=== PATIENT | male | born 1970 | race Caucasian/White ===

== ENCOUNTER 2021-09-17 12:03 | Observation (INO) ==
[2021-09-17] MEDS ORDERED: fentaNYL citrate 100 MCG/2 ML VIAL ONE ×3 (13:42→15:55)
[2021-09-17] MEDS ORDERED: MIDAZOLAM HCL 5 MG/ML 1 ML VIAL ONE ×2 (13:42→15:31)
--- NOTE | 2021-09-17 13:55 | History & Physical Report ---
Date of Service September 17, 2021 Assessment & Plan (1) Nonischemic cardiomyopathy: (2) AVB (atrioventricular block): (3) Pacemaker: (4) HERNANDEZ (dyspnea on exertion): Plan: 1. Nonischemic cardiomyopathy: He has developed a nonischemic cardiomyopathy which may be related to ventricular pacing as well as identification of sarcoid. Since he is pacing all of the time with a wide-complex a biventricular pacemaker is indicated, with his left ventricular dysfunction and cardiac sarcoid he should have an ICD in place. 2. AV block: He initially presented with exercise-induced second-degree AV block, however now even at rest he is pacing all of the time. With inhibition of his pacemaker today he is pacemaker dependent with complete heart block, evidently having significant progression since device implantation. 3. Pacemaker: He has a dual-chamber pacemaker in place, this is functioning well and was implanted about 4 months ago. It is likely that we can remove the ventricular lead which will be important to maintain MRI compatibility for the future. The atrial lead has good characteristics. 4. Dyspnea on exertion: His dyspnea on exertion improved substantially with pacemaker implantation, therefore his main symptoms resolved with allowing an elevated heart rate with activity. He does not seem to have much in the way of symptoms from his sarcoid. I discussed upgrading his device from a pacemaker to a biventricular ICD. I discussed the indications, procedure, risks and alternatives and he understands and agrees to proceed. Consent obtained. I also discussed sedation with him and he is agreeable. Consent obtained. History of Present Illness Chief Complaint: Nonischemic cardiomyopathy Primary Care Provider: Fili Mir This is a 51-year-old male who developed dyspnea on exertion in the summer 2020, prior to that he worked out regularly in the gym and had no difficulty with that . He began to be quite short of breath with exertion without associated chest discomfort, orthopnea or peripheral edema. In retrospect he did monitor his heart rate during exercise with a heart rate monitor and starting around March 08, 2021 he noticed that his heart rate monitor produced erratic readings, he thought it wasn't working and replaced it with a different one which gave him the same result therefore he quit wearing it. The monitor showed that his heart rate would greens picker normally sometimes and then would drop down with exercise and probably identified the onset of his heart block. Those symptoms have probably progressed over that time. At rest he has no complaints, he has not had lightheadedness, presyncope or syncope. To evaluate his shortness of breath a stress test was scheduled and was performed May 14, 2021. His baseline electrocardiogram showed sinus rhythm with marked first-degree AV block but with a normal conducted electrical complexes. With exercise he d eveloped second-degree and then 2-1 AV block, at peak exercise his heart rate was 61 bpm (2-1 AV block). His maximum heart rate actually occurred during recovery when he regained one-to-one conduction which occurred several minutes into recovery and his heart rate was 120 bpm. This did reproduce his clinical symptoms. An echocardiogram was normal at baseline and he had no ischemia with exercise, but at a very submaximal heart rate. A Lyme screen was sent and was negative both for IgG and IgM. With no reversible cause for his AV block a pacemaker was implanted on May 17, 2021. He immediately felt very well having no difficulty with exertion once again. An echocardiogram done May 14, 2021 had showed normal left ventricular systolic function with normal left ventricular wall thickness. His ejection fraction was calculated 55 to 60%. He had a CT scanning of the abdomen and pelvis on March 21, 2021 for hematuria and on that an incidental finding was small nodules in the lower lungs felt to be benign and tiny knowledge with some opacity in the right middle lobe concerning for inflammatory process and the recommendation was for CT scan in [address] scan was done June 20, 2021 and there may have been progression, this was felt to be concerning for sarcoidosis so a referral was made for evaluation of that. Evaluation there disclosed that he did indeed have sarcoid and that is being evaluated for treatment at this time. As part of that evaluation however (which was done at [facility]) he did have a cardiac MRI where his ejection fraction was noted to be in the 30s. Although this may in part be pacemaker induced it was concerning with the diagnosis of sarcoid and a recommendation was made to upgrade his device to an ICD, since he was pacing all the time at this juncture this was felt to indicate a biventricular ICD. He has continued to feel well with exertion, he has not had heart failure symptoms and reports no lightheadedness, dizziness, palpitations, presyncope or syncope. Allergies Allergy/AdvReac Type Severity Reaction Status Date / Time No Known Allergies Allergy Verified 06/19/21 14:36 Home Medications Medication Instructions Recorded Confirmed Type atorvastatin 20 mg tablet 20 mg PO QPM 05/15/21 09/17/21 History folic acid 1 mg tablet 1 mg PO DAILY 09/17/21 09/17/21 History methotrexate sodium 2.5 mg tablet 12.5 mg PO WK 09/17/21 09/17/21 History metoprolol succinate 25 mg PO DAILY 09/17/21 09/17/21 History sacubitril 24 mg-valsartan 26 mg 1 tab PO BID 09/17/21 09/17/21 History tablet (Entresto) Past Med/Surg History Social History Smoking Status: Never smoker Hx Alcohol Use: Yes Alcohol type: beer and hard liquor Hx Substance Use: No Preferred Language: Scottish Communication Ability: Effective Coupon Collection Clerk Required: No Beliefs That Will Affect Care: None Current Living Situation: Spouse Feels Safe at Home: Yes Safety Concerns: Feels Safe At This Time Assistive Devices: None Physical Exam Physical Exam: Constitutional: Alert, cooperative and in no distress. HEENT: Unremarkable Neck: No jugular venous distention, carotid pulses are normal and equal bilaterally without bruits. Pulmonary: Clear to auscultation bilaterally. Cardiac: Regular rhythm with no murmur, gallop or rub. Abdomen: Soft, nontender with normal bowel sounds. Extremities: No edema. Distal pulses intact. Neurologic: No focal findings. Gait is steady. Skin: The device site is well-healed without erythema, swelling or tenderness. No rash, ecchymoses or petechiae. Results & Data Results & Data ([facility]) Vital Signs (Past 12 Hours) Vital Signs Temp Pulse Resp BP Pulse Ox 09/17/21 12:14 36.8 C 82 16 115/97 97 Laboratory Results Intake and Output 09/16/21 09/17/21 09/17/21 22:59 06:59 14:59 Other: Weight 139.4 kg Weight Measurement Method Standing Scale Patient Weight 09/18/21 06:59 Weight 139.4 kg PG Care Time/CCT Total # of Minutes Spent Total Time Spent with Patient: Total time spent is greater than 50% in coordination of care (as documented) at patient's floor/unit and/or counseling patient: Coding Level of Care Code None Diagnoses Nonischemic cardiomyopathy I42.8 AVB (atrioventricular block) I44.30 Pacemaker Z95.0 HERNANDEZ (dyspnea on exertion) R06.00
[2021-09-17] MEDS ORDERED: LIDOCAINE 1% LOCAL 20 ML VIAL ONE ×2 (13:57→15:54)
[2021-09-17] MEDS ORDERED: WATER, STERILE FOR INJ 10 ML VIAL ONE (13:57)
[2021-09-17] MEDS ORDERED: VANCOMYCIN HCL 1000MG/20ML VIAL ONE (13:57)
[2021-09-17] MEDS ORDERED: ceFAZolin 330 MG/ML 1 GM VIAL ONE (14:06)
--- NOTE | 2021-09-17 14:08 | Pre Anesthesia Assessment ---
Date of Service September 17, 2021 Pre Sedation Assessment Vital Signs Temp Pulse Resp BP Pulse Ox 09/17/21 12:14 36.8 C 82 16 115/97 97 Cardiovascular RRR, no murmur, no edema Respiratory normal respiratory effort, lungs clear to auscultation Pre-Sedation Airway Assessment Smoking Status: Never smoker Hx Sleep Apnea: No Short, Thick Neck: No Thyromental Distance: > or= 3.5 Finger Breadths Oral Cavity: + WNL Mallampati Class: II ASA: ASA3 NPO Status Date of Last Intake of Fluids: 09/16/21 Time of Last Intake of Fluids: 21:00 Date of Last Intake of Solid Food: 09/16/21 Time of Last Intake of Solid Foods: 21:00 Procedure Planning Contraindications for Sedation: none Current Medications Reviewed: Yes Notes The planned sedation has been discussed with the patient. Informed Consent was obtained. I have identified the patient, determined the appropriateness of sedation and have assessed the patient immediately prior to the procedure. All medicine(s) and interventions are by my order.
[2021-09-17] MEDS ORDERED: BACITRACIN OINT 0.9 GM PKT ONE (16:37)
[2021-09-17] MEDS ORDERED: KETOROLAC TROMETHAMINE 10 MG TABLET PO PRN (16:45)
--- NOTE | 2021-09-17 16:54 | Electrophysiology Report ---
Date of Service September 17, 2021 Electrophysiology Procedure Electrophysiology Procedure Report Preoperative diagnosis: Cardiomyopathy Dual-chamber Pacemaker Postoperative diagnosis: Same Procedure: Left subclavian venogram ICD lead implantation Coronary sinus angiogram Left ventricular lead implantation Dual-chamber pacemaker explantation Biventricular ICD implantation Right ventricular pacing lead extraction Surgeon: Kenneth Acuna MD Estimated blood loss: 30 cc Complications: None Disposition: Engine Monitor recovery Procedure details: Dye was injected via the left arm IV site to opacify the left subclavian vein. The subclavian vein was identified and found to be free of obstruction. Left axillary venipuncture was performed and a guidewire placed through left subclavian vein into the right atrium. A 3 cm incision was made through the old implant scar and carried down to the pectoralis fascia. A 10- 1/2 [place] Medtronic lead introducer was placed over the guidewire into the left subclavian vein. A bipolar dual coil defibrillator lead was advanced through the introducer into the superior vena cava. A guidewire was placed back through the introducer and the introducer stripped away from the lead and guidewire. Using a curved stylette the lead was advanced through the right ventricular outflow tract and then using a straight stylette was positioned in the right ventricular apex. Once in position the ventricular pacing threshold was evaluated in bipolar configuration at a pulse width of 0.5 ms. Sensing and pacing thresholds are recorded on the data sheet. Diaphragmatic pacing was evaluated full output and is recorded on the data sheet. A Dyan coronary sinus sheath was advanced to position in the right atrium. It was positioned near the coronary sinus, dye was injected to opacify the os of the coronary sinus and a guidewire was advanced into the coronary sinus. The sheath system was advanced into the coronary sinus. Dye was injected in the coronary sinus in various projections to identify the venous branches. A good branch was identified and a 0.014 inch guidewire was advanced into the branch. A left ventricular lead was advanced over the guidewire into good position. The pacing threshold was evaluated in this position as noted on the implant data sheet. Diaphragmatic pacing was evaluated full output and is noted on the data sheet. The sheath system was then removed from the lead and the ICD lead and the LV lead were attached to the anterior pectoral fascia using 2 sutures of 2-0 silk around each lead collar. The pacemaker pocket was opened by further anesthetizing along the original implant site and incision was made through the scar and carried down to the pacemaker generator. The generator was dissected free of tissue and explanted. The leads were disconnected from the generator and a new biventricular ICD was attached to the chronic atrial lead as well as the new ICD lead and the new coronary sinus lead. The chronic ventricular lead was dissected free of tissue, the sutures holding the lead to the pectoralis fascia were removed and the lead was stiffened with a stylette. The screw was retracted and the lead was removed with gentle tract ion. The ICD was placed in the pocket with the leads coiled beneath it and the incision was closed with a running double subcutaneous closure of 3-0 Vicryl followed by running subcuticular skin closure of 4-0 Vicryl. Bacitracin ointment was placed on incision and a dressing applied. [facility] [place] Electrophysiology codes Indication for Procedure (1) Nonischemic cardiomyopathy: (2) AVB (atrioventricular block): (3) Sarcoid myopathy: Pacing Procedure 1: Pacin BiV electrode w/Pacer / ICD implant, add on code Procedure 2: Pacin Removal perm single lead Procedure 3: Pacin Removal Pacer genererator ICD Procedure 1: ICD: 12146 Insert single or dual ICD system Miscellaneous Procedures Procedure 1: EP Miscellaneous: 70494-87 Vengraphy, extremity Procedure 2: EP Miscellaneous: 54472 Contrast injection for venography Procedure 3: EP Miscellaneous: 45157-28 Venography, CS supevsion/interp PG Moderate Sedation Codes Moderate Sedation Codes Procedure 1: Sedation/Anesthesia: 53739 Mod Sedation by the same physician;Init15 Min Child Age 5 & Up Procedure 2: Sedation/Anesthesia: 07745 Mod Sedation by the same physician; Ea [id number] Minutes
--- NOTE | 2021-09-17 17:27 | Post Anesthesia Assessment ---
Date of Service September 17, 2021 Post Sedation Assessment Vital Signs Temp Pulse Resp BP Pulse Ox 09/17/21 17:15 99 H 18 115/82 96 09/17/21 17:00 36.6 C 99 H 16 117/84 95 09/17/21 12:14 36.8 C 82 16 115/97 97 Discharge Sedation Level of Care: Fast Track Phase II Post Sedation Plan On clinical assessment, the patient appears to have tolerated the sedation without complications. Patient is recovering as anticipated. Patient will continue to be monitored by nursing and may be discharged when sedation discharge criteria are met per below protocol. Upon Completions of procedure up to 15 minutes continue every 5 minute vital signs and the P.A.R. score; then discharge to a Phase I or Fast Track to Phase II per the following guidelines: * Discharge Patient to appropriate Phase II area if PAR is 8 or greater or return to pre- procedure baseline. The post - procedure orders will be as directed. * If PAR score is less than 8 or not return to pre-procedure baseline then patient will follow Phase I monitoring till PAR is reached for Phase II. The Phase I may be done in procedure room or may call to secure a Phase I area. * If naloxone or flumazenil are used for reversal, hold in Phase I for continued monitoring from when last reversal dose was given for a minimum of 60 minutes or longer pending the nurse and/or physician discretion of patient condition before discharge to Phase II. Please call the Sedation Physician to re-evaluate and complete post-note for discharge to Phase II area. Do NOT discharge from procedure sedation or Phase 1 until post- sedation evaluation note is complete by procedure /sedation MD Sedation Discharge Instructions to be given to the patient at discharge to home.
[2021-09-17] MEDS: ACETAMINOPHEN 325 MG TAB PO PRN (20:41)
[2021-09-17] MEDS ORDERED: ATORVASTATIN 20 MG TAB PO SCH (21:00)
[2021-09-17] MEDS: VALSARTAN/SACUBITRIL 26/24MG TAB PO SCH (21:08)
[2021-09-18] MEDS: VALSARTAN/SACUBITRIL 26/24MG TAB PO SCH (08:28)
[2021-09-18] MEDS: ACETAMINOPHEN 325 MG TAB PO PRN (08:47)
[2021-09-18] MEDS ORDERED: METOPROLOL SUCC 25MG EXT REL TAB PO SCH (09:00)
[2021-09-18] MEDS ORDERED: FOLIC ACID 1 MG TAB PO SCH (09:00)
--- NOTE | 2021-09-18 09:02 | XRay Report ---
TWO VIEW CHEST CLINICAL HISTORY: Pacemaker implantation. FINDINGS: PA and lateral chest radiographs are compared to study dated 05/17/2021 and correlated with chest CT dated 06/20/2021. A 3-lead cardiac AICD has been placed. This partially obscures left lung ba se. Leads project over the right atrial appendage, the right ventricle, and the coronary sinus. The h eart is top normal for projection. The pulmonary vasculature is noncongested. There are low lung volu mes with bibasilar atelectasis. No airspace consolidation or pleural effusion is identified. There is no pneumothorax. The bony thorax appears intact. IMPRESSION: 1. A 3-lead cardiac AICD has been implanted as above. No pneumothorax is seen post procedure. 2. There is no radiographic evidence of congestive failure. 3. No airspace consolidation or pleural effusion is identified. ACT 112: Negative or not required by law. Electronically signed by: Enio Cruz M.D. 09/18/2021 9:01 AM
--- NOTE | 2021-09-18 09:37 | Cardiology Progress Note ---
Date of Service September 18, 2021 Assessment & Plan (1) Status post implantation of automatic cardioverter/defibrillator (AICD): Plan: 1. Postop day #1: He is doing very well postop, the site looks good, leads are in good position and the device is working well. He is stable for discharge today. Admission and Anticipated Discharge Date Admission Date: September 17, 2021 Subjective He is feeling quite well this morning. He had something he thought was a muscle spasm during the night, but nothing more than that and he has minimal incisional discomfort. No chest discomfort or shortness of breath. Physical Exam Physical Exam: The incision is clean and dry, no erythema, minimal tenderness. No swelling or drainage. Cardiac rhythm is regular with no rub Lungs are clear Results & Data ([facility]) Vital Signs (Past 12 Hours) Vital Signs Temp Pulse Pulse Resp BP Pulse Ox 09/18/21 07:07 36.8 C 89 18 121/84 97 09/18/21 03:00 36.6 C 87 20 115/86 96 09/18/21 00:16 88 09/17/21 22:54 36.7 C 86 16 100/69 95 Diagnostic Findings 1. Postop ECG: Sinus rhythm with biventricular pacing, significant right bundle branch block pattern suggesting early left ventricular activation, I will adjust VV timing today. 2. Telemetry: Ventricular pacing throughout appropriately 3. Chest x-ray: Good lead position, no pneumothorax. 4. ICD evaluation: Excellent pacing and sensing characteristics in both ventricular leads. PG Care Time/CCT Total # of Minutes Spent Total Time Spent with Patient: Total time spent is greater than 50% in coordination of care (as documented) at patient's floor/unit and/or counseling patient: Coding Level of Care Code 82271 Post Operative Follow-Up Diagnoses Status post implantation of automatic cardioverter/defibrillator (AICD) Z95.810 CPT Codes Implantable Defib Multi lead programming - 71558 ([id number])
--- NOTE | 2021-09-18 11:15 | Electrocardiogram Report ---
Test Reason : Blood Pressure : / mmHG Vent. Rate : 086 BPM Atrial Rate : 086 BPM P-R Int : 136 ms QRS Dur : 168 ms QT Int : 424 ms P-R-T Axes : 021 250 005 degrees QTc Int : 507 ms Atrial-sensed ventricular-paced rhythm Biventricular pacemaker detected Abnormal ECG When compared with ECG of 17-MAY-2021 13:11, Vent. rate has increased BY 4 BPM Confirmed by Grover Pascal ([id number]) on 09/18/2021 11:14:30 AM Referred By: Kenneth Acuna Confirmed By:Oskar Pascal
--- NOTE | 2021-09-30 09:32 | Discharge Summary ---
Date of Service September 30, 2021 Admission HPI Per Admitting Provider This is a 51-year-old male who developed dyspnea on exertion in the summer 2020, prior to that he worked out regularly in the gym and had no difficulty with that. He began to be quite short of breath with exertion without associated chest discomfort, orthopnea or peripheral edema. In retrospect he did monitor his heart rate during exercise with a heart rate monitor and starting around March 08, 2021 he noticed that his heart rate monitor produced erratic readings, he thought it wasn't working and replaced it with a different one which gave him the same result therefore he quit wearing it. The monitor showed that his heart rate would chicken picker normally sometimes and then would drop down with exercise and probably identified the onset of his heart block. Those symptoms have probably progressed over that time. At rest he has no complaints, he has not had lightheadedness, presyncope or syncope. To evaluate his shortness of breath a stress test was scheduled and was performed May 14, 2021. His baseline electrocardiogram showed sinus rhythm with marked first-degree AV block but with a normal conducted electrical complexes. With exercise he developed second-degree and then 2-1 AV block, at peak exercise his heart rate was 61 bpm (2-1 AV block). His maximum heart rate actually occurred during recovery when he regained one-to-one conduction which occurred several minutes into recovery and his heart rate was 120 bpm. This did reproduce his clinical symptoms. An echocardiogram was normal at baseline and he had no ischemia with exercise, but at a very submaximal heart rate. A Lyme screen was sent and was negative both for IgG and IgM. With no reversible cause for his AV block a pacemaker was implanted on May 17, 2021. He immediately felt very well having no difficulty with exertion once again. An echocardiogram done May 14, 2021 had showed normal left ventricular systolic function with normal left ventricular wall thickness. His ejection fraction was calculated 55 to 60%. He had a CT scanning of the abdomen and pelvis on March 21, 2021 for hematuria and on that an incidental finding was small nodules in the lower lungs felt to be benign and tiny knowledge with some opacity in the right middle lobe concerning for inflammatory process and the recommendation was for CT scan in [address] scan was done June 20, 2021 and there may have been progression, th is was felt to be concerning for sarcoidosis so a referral was made for evaluation of that. Evaluation there disclosed that he did indeed have sarcoid and that is being evaluated for treatment at this time. As part [facility] that evaluation however [facility] he did have a cardiac MRI where his ejection fraction was noted to be in the 30s. Although this may in part be pacemaker induced it was concerning with the diagnosis of sarcoid and a recommendation was made to upgrade his device to an ICD, since he was pacing all the time at this juncture this was felt to indicate a biventricular ICD. He has continued to feel well with exertion, he has not had heart failure symptoms and reports no lightheadedness, dizziness, palpitations, presyncope or syncope. Admission Exam Per Admitting Provider Constitutional: Alert, cooperative and in no distress. HEENT: Unremarkable Neck: No jugular venous distention, carotid pulses are normal and equal bilaterally without bruits. Pulmonary: Clear to auscultation bilaterally. Cardiac: Regular rhythm with no murmur, gallop or rub. Abdomen: Soft, nontender with normal bowel sounds. Extremities: No edema. Distal pulses intact. Neurologic: No focal findings. Gait is steady. Skin: The device site is well-healed without erythema, swelling or tenderness. No rash, ecchymoses or petechiae. Principal Diagnosis Sarcoid cardiomyopathy Discharge Exam Pulmonary: Clear to auscultation bilaterally. Cardiac: Regular rhythm with no murmur, gallop or rub. Abdomen: Soft, nontender with normal bowel sounds. The device site is clean and dry, no erythema, swelling or significant tenderness. Expected ecchymosis. Discharge Data Allergies Allergy/AdvReac Type Severity Reaction Status Date / Time No Known Allergies Allergy Verified 09/23/21 10:20 Procedures Performed Operation Date: 09/17/21 13:00 Actual Procedures s Cineradiography w/Routine Exam - Kenneth Acuna MD p Insertion ICD w/Existing Dual - Grover Pascal MD p Upgrade of any system to BIV - Grover Pascal MD s Lead LV (No Priopr Implant) - Grover Pascal MD s Venogram, Unilateral - Grover Pascal MD Ordered Studies 09/17/21 14:00 EP Lab Images for PACS ONCE Hospital Course (1) Status post implantation of automatic cardioverter/defibrillator (AICD): Postop day #1: He is doing well post ICD implantation, the device site looks good, the x-ray shows good lead position and the device is working well. Stable for discharge. Total Time Total Time Spent Total Time Spent (In Minutes): 22 Discharge Plan Discharge Items Patient Disposition: Home - Self-Care Reason For Visit: Upgrade dual-chamber pacemaker to ICD Discharge Diagnosis: Device upgrade Activity: Per Instructions section Lifting: Gradually increase as tolerated Bathing: Keep incision dry Exercise/Sports: Gradually increase as tolerated Driving/Machine Use: No limitations Non-emergency contact: Natural Resource Technician Call non-emergency contact if: your pain is not controlled, you have a fever and your wound has increased redness Follow-up/Referrals: Fili Mir [Primary Care Provider] - 09/26/21 10:45 am Diet: Heart Healthy Addtl Attending Provider Instructions: ACTIVITY RECOMMENDATIONS: * Do not raise affected arm over head for 2 weeks. SPECIAL CARE INSTRUCTIONS: * If bleeding occurs, apply direct pressure to area for 5 minutes. * Call your doctor if you have severe pain, fever, drainage or bleeding at site. * Keep dressing on and dry for 48 hours then remove. * Keep any scheduled doctor's appointment. * Implant Card - hand held device with website information given. SKIN IRRITATION: * You may experience some redness and/or swelling in the area where radiation was administered. If any skin irritation occurs, please contact your family physician. FOLLOW UP VISIT: Keep any scheduled doctor appointments. Pending Studies at Discharge: No Stand-Alone Forms: Review[employer], Smoking Cessation Medications and DC Order Prescriptions: Continued atorvastatin 20 mg tablet 20 mg PO QPM RF: 0 methotrexate sodium 2.5 mg Tablet 12.5 mg PO WK RF: 0 folic acid 1 mg Tablet 1 mg PO DAILY RF: 0 Entresto 24-26 mg Tablet 1 tab PO BID RF: 0 No Action metoprolol succinate 25 mg tablet extended release 24 hr 25 mg PO DAILY RF: 0 Discharge Orders: Discharge Order (Routine); Ordered 09/18/21 Ordered By: Kenneth Acuna Admission Data Admit Date/Time: 09/17/21 14:44 Attending Provider: Kenneth Acuna Admit Provider: Kenneth Acuna Primary Care Provider: Fili Mir Other Interventions: Discharge Summary Assessment (RN) Last Done: 09/18/21 09:48 Coding Level of Care Code 25072 OBS Care - Discharge Diagnoses Status post implantation of automatic cardioverter/defibrillator (AICD) Z95.810
== END 2021-09-18 11:00 | disposition home or self-care (01) ==
LOC: 2S 12:03 → EP 12:03